=== PATIENT | female | born 1965 | race African-American/Black ===

== ENCOUNTER 2016-12-12 19:51 | Inpatient (IN) | payer BC ==
[~2016-12-12] VITALS: Ht 175.3 cm; Wt 115.4 kg
[2016-12-12 20:48] LABS: Basophils # (auto) 0 uL; Basophils % (auto) 0.5 % (0.0-2.0); Eosinophils # (auto) 0.5 uL; Eosinophils % (auto) 6.8 % (0.0-7.0); Hematocrit 36.3 % (36.0-46.0); Lymphocytes # (auto) 2.1 uL; Lymphocytes % (auto) 27.6 % (10.0-50.0); Mean Corpuscular Hgb Conc. 33.2 g/dL (32.0-36.0); Mean Corpuscular Volume 90.3 fL (80.0-100.0); Monocytes # (auto) 0.5 uL; Monocytes % (auto) 6.5 % (0.0-12.0); Neutrophils # (auto) 4.5 uL; Neutrophils % (auto) 58.6 % (37.0-80.0); Platelet Count (auto) 200 10^3/uL (140-450); Red Cell Distribution Width 13.4 % (11.6-16.0); White Blood Cell 7.7 10^3/uL (4.4-10.8)
[2016-12-12 21:01] LABS: INR 0.99 (0.9-1.15); Partial Thromboplastin Time 27.1 sec (22.64-33.71); Prothrombin Time 10.7 sec (9.37-12.3)
[2016-12-12 21:09] LABS: Albumin 3.2 g/dL (3.4-5.0); BUN/Creatinine Ratio 14.6; Bilirubin, Total 0.4 mg/dL (0.2-1.0); Calcium 8.9 mg/dL (8.5-10.1); Potassium 3.8 mmol/L (3.5-5.1); Total Protein 7.8 g/dL (6.4-8.2)
[2016-12-12] MEDS ORDERED: ENOXAPARIN SOD 100 MG/1 ML SYRINGE SC ONE (23:15)
[2016-12-13] VITALS (8 sets, daily range): BP systolic 93–114; BP diastolic 55–79
[2016-12-13] MEDS ORDERED: TEMAZEPAM 15 MG CAP PO PRN (00:45)
[2016-12-13] MEDS: ONDANSETRON HCL 4 MG/2 ML VIAL IV PRN ×2 (02:21→17:40)
[2016-12-13] MEDS: HYDROcodone-ACET 5/325MG TAB PO PRN ×4 (02:21→21:08)
[2016-12-13 02:29] LABS: Urine Bilirubin Negative (Negative); Urine Blood TRACE /uL (Negative); Urine Color Yellow (Yellow); Urine Glucose Normal (Normal); Urine Hyaline Cast FEW /lpf (0 - 2); Urine Ketone Negative (Negative); Urine Mucus FEW (None Seen); Urine Nitrite Negative (Negative); Urine RBC 3 /hpf (0 - 4); Urine Squamous Epithelial Cell FEW /hpf (<5); Urine Urobilinogen Normal (Negative); Urine pH 5.5 (5.0-8.0)
[2016-12-13] MEDS ORDERED: ENOXAPARIN SOD 100 MG/1 ML SYRINGE SC SCH (10:00)
[2016-12-13] MEDS: FAMOTIDINE 20 MG TAB PO SCH ×2 (10:46→21:09)
[2016-12-13] MEDS: MONTELUKAST SODIUM 10 MG TAB PO SCH (10:46)
[2016-12-13] MEDS ORDERED: APIXABAN 5 MG TAB PO SCH (12:17)
[2016-12-13] MEDS: MORPHINE SULF INJ 2 MG/ML SYRINGE 1ML IV PRN (17:40)
[2016-12-13] MEDS: APIXABAN 5 MG TAB PO SCH (21:09)
[2016-12-14 05:00] VITALS: BP 110/61
[2016-12-14] MEDS: ACETAMINOPHEN 325 MG TAB PO PRN ×2 (05:28→21:47)
[2016-12-14 05:45] LABS: Basophils # (auto) 0 uL; Basophils % (auto) 0.5 % (0.0-2.0); Eosinophils # (auto) 0.2 uL; Eosinophils % (auto) 2.1 % (0.0-7.0); Hemoglobin 11.9 g/dL (12.2-16.2); Lymphocytes # (auto) 1.7 uL; Lymphocytes % (auto) 19.5 % (10.0-50.0); Mean Corpuscular Hemoglobin 29.6 pg (28.0-32.0); Mean Corpuscular Hgb Conc. 32.2 g/dL (32.0-36.0); Mean Corpuscular Volume 91.9 fL (80.0-100.0); Mean Platelet Volume 8.9 fL (7.4-10.4); Monocytes # (auto) 0.6 uL; Monocytes % (auto) 6.4 % (0.0-12.0); Neutrophils # (auto) 6.3 uL; Neutrophils % (auto) 71.5 % (37.0-80.0); Platelet Count (auto) 213 10^3/uL (140-450); Red Cell Distribution Width 13.6 % (11.6-16.0); White Blood Cell 8.8 10^3/uL (4.4-10.8)
[2016-12-14 06:11] LABS: BUN/Creatinine Ratio 11.5; Calcium 8.4 mg/dL (8.5-10.1); Potassium 3.9 mmol/L (3.5-5.1)
[2016-12-14 06:19] LABS: Bilirubin, Total 0.7 mg/dL (0.2-1.0); Total Protein 7.5 g/dL (6.4-8.2)
[2016-12-14] MEDS: APIXABAN 5 MG TAB PO SCH ×2 (08:38→21:47)
[2016-12-14] MEDS: MONTELUKAST SODIUM 10 MG TAB PO SCH (08:38)
[2016-12-14] MEDS: FAMOTIDINE 20 MG TAB PO SCH ×2 (08:38→21:47)
[2016-12-14] MEDS: ONDANSETRON HCL 4 MG/2 ML VIAL IV PRN (08:39)
[2016-12-14 09:00] VITALS: BP 105/55
[2016-12-14] MEDS: SODIUM CHLORIDE 0.9% 1,000 ML IV SCH (12:30)
[2016-12-14] MEDS: MORPHINE SULF INJ 2 MG/ML SYRINGE 1ML IV PRN (12:46)
[2016-12-14 13:00] VITALS: BP 104/60
[2016-12-14] MEDS: DOCUSATE SOD 100 MG CAP PO SCH ×2 (13:17→21:47)
[2016-12-14] MEDS: HYDROcodone-ACET 5/325MG TAB PO PRN (13:40)
[2016-12-14 17:00] VITALS: BP 99/58
[2016-12-14] MEDS: LACTULOSE 20Gm/30ML SOLN PO PRN (17:59)
[2016-12-14 22:00] VITALS: BP 99/57
[2016-12-15 05:45] VITALS: BP 106/60
[2016-12-15 06:15] LABS: Basophils # (auto) 0.1 uL; Basophils % (auto) 0.5 % (0.0-2.0); Eosinophils # (auto) 0.3 uL; Eosinophils % (auto) 2.4 % (0.0-7.0); Hematocrit 37.1 % (36.0-46.0); Hemoglobin 12.1 g/dL (12.2-16.2); Lymphocytes # (auto) 2.4 uL; Lymphocytes % (auto) 22.3 % (10.0-50.0); Mean Corpuscular Hemoglobin 29.9 pg (28.0-32.0); Mean Corpuscular Hgb Conc. 32.6 g/dL (32.0-36.0); Mean Corpuscular Volume 91.7 fL (80.0-100.0); Mean Platelet Volume 9.4 fL (7.4-10.4); Monocytes # (auto) 0.9 uL; Monocytes % (auto) 8.3 % (0.0-12.0); Neutrophils % (auto) 66.5 % (37.0-80.0); Platelet Count (auto) 222 10^3/uL (140-450); Red Cell Distribution Width 13.2 % (11.6-16.0); White Blood Cell 10.6 10^3/uL (4.4-10.8)
[2016-12-15] MEDS: SODIUM CHLORIDE 0.9% 1,000 ML IV SCH ×3 (06:22→21:39)
[2016-12-15] MEDS: HYDROcodone-ACET 5/325MG TAB PO PRN ×2 (06:22→10:57)
[2016-12-15 06:30] LABS: Calcium 8.6 mg/dL (8.5-10.1); Potassium 3.8 mmol/L (3.5-5.1)
[2016-12-15 06:32] LABS: BUN/Creatinine Ratio 9.6
[2016-12-15 06:45] LABS: Bilirubin, Total 0.8 mg/dL (0.2-1.0); Total Protein 7.9 g/dL (6.4-8.2)
[2016-12-15 07:00] VITALS: BP 106/63
[2016-12-15] MEDS: FAMOTIDINE 20 MG TAB PO SCH ×2 (09:29→21:39)
[2016-12-15] MEDS: DOCUSATE SOD 100 MG CAP PO SCH ×2 (09:29→21:39)
[2016-12-15] MEDS: MONTELUKAST SODIUM 10 MG TAB PO SCH (09:29)
[2016-12-15] MEDS: APIXABAN 5 MG TAB PO SCH ×2 (09:29→21:39)
[2016-12-15 11:00] VITALS: BP 95/56
[2016-12-15] MEDS ORDERED: LACTULOSE 20Gm/30ML SOLN PO PRN (11:00)
[2016-12-15] MEDS: PIPERACILLIN-TAZOB 3.375GM 100 ML IV SCH ×3 (11:39→23:30)
[2016-12-15] MEDS ORDERED: BISACODYL 10 MG RECT SUPP PR ONE (13:30)
[2016-12-15 16:49] VITALS: BP 103/61
[2016-12-15 21:30] VITALS: BP 96/53
[2016-12-15] MEDS: LACTULOSE 20Gm/30ML SOLN PO PRN (23:30)
[2016-12-16 05:00] VITALS: BP 108/57
[2016-12-16] MEDS: PIPERACILLIN-TAZOB 3.375GM 100 ML IV SCH ×3 (05:30→18:20)
[2016-12-16 07:05] LABS: Albumin 2.6 g/dL (3.4-5.0); Bilirubin, Total 0.9 mg/dL (0.2-1.0); Total Protein 7.2 g/dL (6.4-8.2)
[2016-12-16 07:14] LABS: Bilirubin, Direct 0.3 mg/dL (0-0.2)
[2016-12-16] MEDS: SODIUM CHLORIDE 0.9% 1,000 ML IV SCH ×2 (08:30→18:50)
[2016-12-16 09:00] VITALS: BP 96/56
[2016-12-16] MEDS: APIXABAN 5 MG TAB PO SCH ×2 (09:02→21:57)
[2016-12-16] MEDS: MONTELUKAST SODIUM 10 MG TAB PO SCH (09:03)
[2016-12-16] MEDS: DOCUSATE SOD 100 MG CAP PO SCH ×2 (09:03→21:56)
[2016-12-16] MEDS: FAMOTIDINE 20 MG TAB PO SCH ×2 (09:03→21:56)
[2016-12-16] MEDS: HYDROcodone-ACET 5/325MG TAB PO PRN ×2 (11:41→21:56)
[2016-12-16 13:00] VITALS: BP 93/46
[2016-12-16 17:00] VITALS: BP 101/57
[2016-12-16 22:05] VITALS: BP 101/59
[2016-12-17] MEDS: PIPERACILLIN-TAZOB 3.375GM 100 ML IV SCH ×5 (00:25→23:53)
[2016-12-17] MEDS: SODIUM CHLORIDE 0.9% 1,000 ML IV SCH ×2 (00:25→16:42)
[2016-12-17 05:03] VITALS: BP 114/67
[2016-12-17 07:10] LABS: Albumin 2.6 g/dL (3.4-5.0); Bilirubin, Direct 0.2 mg/dL (0-0.2); Bilirubin, Total 0.5 mg/dL (0.2-1.0); Total Protein 7.4 g/dL (6.4-8.2)
[2016-12-17 09:00] VITALS: BP 98/62
[2016-12-17] MEDS: MONTELUKAST SODIUM 10 MG TAB PO SCH (09:53)
[2016-12-17] MEDS: APIXABAN 5 MG TAB PO SCH ×2 (09:54→22:00)
[2016-12-17] MEDS: DOCUSATE SOD 100 MG CAP PO SCH ×2 (09:54→21:59)
[2016-12-17] MEDS: FAMOTIDINE 20 MG TAB PO SCH ×2 (09:55→22:00)
[2016-12-17 13:00] VITALS: BP 95/58
[2016-12-17 17:00] VITALS: BP 100/77
[2016-12-17 22:00] VITALS: BP 101/46
[2016-12-17] MEDS: HYDROcodone-ACET 5/325MG TAB PO PRN (22:00)
[2016-12-18] MEDS: SODIUM CHLORIDE 0.9% 1,000 ML IV SCH ×2 (00:30→10:54)
[2016-12-18 05:00] VITALS: BP 133/67
[2016-12-18] MEDS: PIPERACILLIN-TAZOB 3.375GM 100 ML IV SCH ×2 (05:54→12:25)
[2016-12-18 08:00] VITALS: BP 142/77
[2016-12-18 08:03] VITALS: BP 110/53
[2016-12-18] MEDS ORDERED: NITR-39 PO (10:02)
[2016-12-18] MEDS ORDERED: DOCU100C8 PO (10:02)
[2016-12-18] MEDS ORDERED: APIX5TAB PO (10:02)
[2016-12-18] MEDS: MONTELUKAST SODIUM 10 MG TAB PO SCH (10:52)
[2016-12-18] MEDS: DOCUSATE SOD 100 MG CAP PO SCH (10:52)
[2016-12-18] MEDS: FAMOTIDINE 20 MG TAB PO SCH (10:52)
[2016-12-18] MEDS: APIXABAN 5 MG TAB PO SCH (10:54)
[2016-12-18 12:24] VITALS: BP 95/56
[2016-12-20] MEDS ORDERED: APIXABAN 5 MG TAB PO SCH (22:00)
== END 2016-12-18 14:25 | disposition home or self-care (01) | DRG 872 ==
LOC: ER 19:54 → OVERFLOW 19:55 → EAST 12-13 01:29
PROVIDERS: ADMIT Nurse Practitioner; ATTEND Internal Medicine
DX: A41.9 Sepsis, unspecified organism (principal); I82.432 Acute embolism and thrombosis of left popliteal vein; N39.0 Urinary tract infection, site not specified; I82.449 Acute embolism and thrombosis of unspecified tibial vein; J45.909 Unspecified asthma, uncomplicated; E66.9 Obesity, unspecified; Z16.12 Extended spectrum beta lactamase (ESBL) resistance; B96.4 Proteus (mirabilis) (morganii) as the cause of diseases classified elsewhere; R79.89 Other specified abnormal findings of blood chemistry; K59.00 Constipation, unspecified; Z80.1 Family history of malignant neoplasm of trachea, bronchus and lung; Z83.511 Family history of glaucoma; Z91.041 Radiographic dye allergy status; Z88.2 Allergy status to sulfonamides; Z87.442 Personal history of urinary calculi; Z68.37 Body mass index [BMI] 37.0-37.9, adult; Z90.49 Acquired absence of other specified parts of digestive tract; Z90.710 Acquired absence of both cervix and uterus; Z82.49 Family history of ischemic heart disease and other diseases of the circulatory system; Z80.0 Family history of malignant neoplasm of digestive organs
CPT/HCPCS: 36415; 71020; 74176; 76705; 80053; 80076; 81001; 83605; 83735; 84702; 85025; 85610; 85730; 87040; 87086; 87088; 87186; 93005; 93971; 96372; 97001; 97116; 97530; J2405; J2543

== ENCOUNTER 2022-03-20 07:40 | Emergency (ER) | payer MEDICAID ==
[~2022-03-20] VITALS: Ht 175.3 cm; Wt 118.0 kg
[~2022-03-20 07:40] MED LIST: APIX5TAB PO; DOCU100C10 PO; MAGN400T40 PO
[2022-03-20 08:25] LABS: Basophils # (auto) 0 10 ^3/uL (0-0.2); Basophils % (auto) 0.6 % (0.0-2.0); Eosinophils # (auto) 0.2 10 ^3/uL (0-0.8); Eosinophils % (auto) 3.4 % (0.0-7.0); Hematocrit 42.2 % (36.0-46.0); Hemoglobin 13.7 g/dL (12.2-16.2); Lymphocytes # (auto) 2.2 10 ^3/uL (0.4-5.4); Lymphocytes % (auto) 43.4 % (10.0-50.0); Mean Corpuscular Hemoglobin 29.9 pg (28.0-32.0); Mean Corpuscular Hgb Conc. 32.4 g/dL (32.0-36.0); Mean Corpuscular Volume 92.3 fL (80.0-100.0); Monocytes # (auto) 0.4 10 ^3/uL (0-1.3); Monocytes % (auto) 7.5 % (0.0-12.0); Neutrophils # (auto) 2.2 10 ^3/uL (1.6-8.6); Neutrophils % (auto) 45.1 % (37.0-80.0); Nucleated Red Blood Cells % 0.3 %; Red Blood Cells 4.57 10^6/uL (4.0-5.20); Red Cell Distribution Width 13.9 % (11.8-14.3)
[2022-03-20 08:44] LABS: Albumin 3.3 g/dL (3.4-5.0); Calcium 8.9 mg/dL (8.5-10.1)
[2022-03-20 08:49] LABS: BUN/Creatinine Ratio 15.5; Bilirubin, Total 0.4 mg/dL (0.2-1.0); Total Protein 7.6 g/dL (6.4-8.2)
[2022-03-20 09:43] LABS: Urine Bacteria FEW /hpf (None Seen); Urine Blood Negative /uL (Negative); Urine Hyaline Cast FEW /lpf (0 - 2); Urine Mucus FEW (None Seen); Urine Specific Gravity 1.031 (1.001-1.035); Urine WBC 23 /hpf (0 - 5)
[2022-03-20] MEDS ORDERED: cefTRIAXone SOD 1,000 MG VL IM ONE (10:00)
[2022-03-20] MEDS ORDERED: cefTRIAXone 1GM/50ML D5W 50 ML IV ONE (10:15)
[2022-03-20 12:11] VITALS: BP 108/57
== END 2022-03-20 12:12 | disposition home or self-care (01) ==
LOC: ER 07:40
DX: S86.912A Strain of unspecified muscle(s) and tendon(s) at lower leg level, left leg, initial encounter (principal); E46 Unspecified protein-calorie malnutrition; Z68.38 Body mass index [BMI] 38.0-38.9, adult; Z90.49 Acquired absence of other specified parts of digestive tract; Z90.710 Acquired absence of both cervix and uterus; Z79.899 Other long term (current) drug therapy; Z88.6 Allergy status to analgesic agent; Z88.2 Allergy status to sulfonamides; Z88.8 Allergy status to other drugs, medicaments and biological substances; Z91.040 Latex allergy status; X58.XXXA Exposure to other specified factors, initial encounter; Y93.89 Activity, other specified; Y92.89 Other specified places as the place of occurrence of the external cause; Y99.8 Other external cause status
CPT/HCPCS: 36415; 71045; 80053; 81001; 83880; 84484; 85025; 93970; 96365; 99285; J0696

== ENCOUNTER 2022-04-01 15:54 | Emergency (ER) | payer MEDICAID ==
[~2022-04-01] VITALS: Ht 175.3 cm; Wt 113.6 kg
[2022-04-01] MEDS ORDERED: ACETAMINOPHEN 500 MG TAB PO ONE (17:30)
[2022-04-01] MEDS ORDERED: SODIUM CHLORIDE 0.9% 500 ML IV ONE (20:45)
[2022-04-01] MEDS ORDERED: HYDROmorphone HCL 2 MG/ML VL/or syr IV ONE ×2 (21:00→23:45)
[2022-04-01 22:49] LABS: Basophils # (auto) 0 10 ^3/uL (0-0.2); Basophils % (auto) 0.3 % (0.0-2.0); Eosinophils # (auto) 0.1 10 ^3/uL (0-0.8); Eosinophils % (auto) 2.2 % (0.0-7.0); Hematocrit 39.3 % (36.0-46.0); Hemoglobin 12.6 g/dL (12.2-16.2); Lymphocytes # (auto) 1.4 10 ^3/uL (0.4-5.4); Lymphocytes % (auto) 24.5 % (10.0-50.0); Mean Corpuscular Hemoglobin 29.8 pg (28.0-32.0); Mean Corpuscular Hgb Conc. 32.2 g/dL (32.0-36.0); Mean Corpuscular Volume 92.4 fL (80.0-100.0); Monocytes # (auto) 0.5 10 ^3/uL (0-1.3); Monocytes % (auto) 8.4 % (0.0-12.0); Neutrophils # (auto) 3.8 10 ^3/uL (1.6-8.6); Neutrophils % (auto) 64.6 % (37.0-80.0); Red Blood Cells 4.25 10^6/uL (4.0-5.20); Red Cell Distribution Width 13.3 % (11.8-14.3); White Blood Cell 5.9 10^3/uL (4.4-10.8)
[2022-04-01 23:07] LABS: Albumin 3.2 g/dL (3.4-5.0); BUN/Creatinine Ratio 11.1; Calcium 8.6 mg/dL (8.5-10.1); Potassium 3.7 mmol/L (3.5-5.1)
[2022-04-01 23:09] LABS: Bilirubin, Total 0.4 mg/dL (0.2-1.0); Total Protein 7.4 g/dL (6.4-8.2)
[2022-04-01] MEDS ORDERED: cefTRIAXone 1GM/50ML D5W 50 ML IV ONE (23:15)
[2022-04-02 00:43] VITALS: BP 100/57
[2022-04-02 02:52] LABS: Urine Bacteria FEW /hpf (None Seen); Urine Blood TRACE /uL (Negative); Urine Mucus FEW (None Seen); Urine Specific Gravity 1.024 (1.001-1.035); Urine WBC 1 /hpf (0 - 5)
[2022-04-02] MEDS ORDERED: LEVO500T31 PO (04:25)
[2022-04-02] MEDS ORDERED: PERCOT PO (04:25)
[2022-04-02] MEDS ORDERED: ONDA-144 PO ×2 (04:25→04:28)
== END 2022-04-02 04:51 | disposition home or self-care (01) ==
LOC: ER 15:54
DX: N39.0 Urinary tract infection, site not specified (principal); R50.9 Fever, unspecified; Z90.49 Acquired absence of other specified parts of digestive tract; Z90.710 Acquired absence of both cervix and uterus; Z79.899 Other long term (current) drug therapy; Z88.2 Allergy status to sulfonamides; Z88.8 Allergy status to other drugs, medicaments and biological substances; Z88.6 Allergy status to analgesic agent; Z91.040 Latex allergy status; Z20.822 Contact with and (suspected) exposure to COVID-19
CPT/HCPCS: 36415; 71045; 74176; 80053; 81001; 83605; 84484; 85025; 87426; 93005; 96361; 96365; 96375; 96376; 99285; J0696; J1170; J7030

== ENCOUNTER 2022-11-12 09:29 | Emergency (ER) | payer MEDICAID ==
[~2022-11-12] VITALS: Ht 175.3 cm; Wt 120.2 kg
[~2022-11-12 09:29] MED LIST changes: +LEVO500T31 PO; +ONDA-144 PO
[2022-11-12] MEDS ORDERED: LEVO500T31 PO (10:46)
[2022-11-12] MEDS ORDERED: PROM1SOL4 PO (10:46)
[2022-11-12 10:49] VITALS: BP 127/74
== END 2022-11-12 10:56 | disposition home or self-care (01) ==
LOC: ER 09:29
DX: J20.9 Acute bronchitis, unspecified (principal)
CPT/HCPCS: 71046

== ENCOUNTER 2023-01-09 06:12 | Emergency (ER) | payer MEDICAID ==
[~2023-01-09] VITALS: Ht 175.3 cm; Wt 120.6 kg
[~2023-01-09 06:12] MED LIST changes: +DOCU-265 PO; -DOCU100C10 PO; +PROM1SOL4 PO
[2023-01-09 07:15] LABS: Urine Bacteria FEW /hpf (None Seen); Urine Blood TRACE /uL (Negative); Urine Specific Gravity 1.022 (1.001-1.035); Urine WBC 2 /hpf (0 - 5)
[2023-01-09 07:33] LABS: Basophils # (auto) 0 10 ^3/uL (0-0.2); Basophils % (auto) 0.5 % (0.0-2.0); Eosinophils # (auto) 0.2 10 ^3/uL (0-0.8); Eosinophils % (auto) 3.2 % (0.0-7.0); Hematocrit 40.5 % (36.0-46.0); Hemoglobin 13.8 g/dL (12.2-16.2); Lymphocytes # (auto) 2.1 10 ^3/uL (0.4-5.4); Lymphocytes % (auto) 43.1 % (10.0-50.0); Mean Corpuscular Hemoglobin 31.4 pg (28.0-32.0); Mean Corpuscular Hgb Conc. 34.1 g/dL (32.0-36.0); Mean Corpuscular Volume 92.1 fL (80.0-100.0); Monocytes # (auto) 0.3 10 ^3/uL (0-1.3); Monocytes % (auto) 6.2 % (0.0-12.0); Neutrophils # (auto) 2.3 10 ^3/uL (1.6-8.6); Nucleated Red Blood Cells % 0.1 %; Red Cell Distribution Width 13.8 % (11.8-14.3)
[2023-01-09 08:04] LABS: Albumin 3.5 g/dL (3.4-5.0); Calcium 8.7 mg/dL (8.5-10.1)
[2023-01-09 08:08] LABS: BUN/Creatinine Ratio 12.7 (10.0-20.0); Bilirubin, Total 0.4 mg/dL (0.2-1.0)
[2023-01-09] MEDS ORDERED: LIDOCAINE VISCOUS 2% 15ML UD PO ONE (08:30)
[2023-01-09] MEDS ORDERED: MAALOX PLUS or MAALOX 30 ML PO ONE (08:30)
[2023-01-09] MEDS ORDERED: FAMOTIDINE 20 MG TAB PO ONE (08:30)
[2023-01-09] MEDS ORDERED: ONDANSETRON ODT 4 MG TAB PO ONE (08:30)
[2023-01-09] MEDS ORDERED: KETOROLAC TROMETH 30 MG/ML 1ML VIAL IM ONE (08:45)
[2023-01-09] MEDS ORDERED: DexAMETHasone SOD PHOS 10MG/1ML VIAL INJ IM ONE (08:45)
[2023-01-09] MEDS ORDERED: HYDROcodone-ACET 5/325MG TAB PO ONE (09:30)
[2023-01-09] MEDS ORDERED: GABAPENTIN 100 MG CAP PO ONE (09:30)
[2023-01-09 10:49] VITALS: BP 144/56
== END 2023-01-09 10:49 | disposition home or self-care (01) ==
LOC: ER 06:12
DX: M54.50 Low back pain, unspecified (principal); G89.29 Other chronic pain; Z90.49 Acquired absence of other specified parts of digestive tract; Z90.710 Acquired absence of both cervix and uterus; Z87.442 Personal history of urinary calculi; Z88.2 Allergy status to sulfonamides; Z88.6 Allergy status to analgesic agent
CPT/HCPCS: 36415; 71045; 72100; 80053; 81001; 83690; 84484; 85025; 96372; 99284; J1100; J1885

== ENCOUNTER 2023-09-09 19:05 | Emergency (ER) | payer MEDICAID ==
[~2023-09-09] VITALS: Ht 175.3 cm; Wt 118.5 kg
[2023-09-09] MEDS ORDERED: HYDROcodone-ACET 10/325MG TAB PO ONE (20:30)
[2023-09-09] MEDS ORDERED: RIVAROXABAN 15 MG TAB PO ONE (21:57)
[2023-09-09 22:28] LABS: Urine Bacteria FEW /hpf (None Seen); Urine Blood Negative /uL (Negative); Urine Clarity Clear (Clear); Urine Color Yellow (Yellow); Urine Mucus FEW (None Seen); Urine Protein, UAD Negative (Negative); Urine Specific Gravity 1.022 (1.001-1.035); Urine Urobilinogen Normal (Negative); Urine WBC <1 /hpf (0 - 5); Urine pH 5.5 (5.0-8.0)
[2023-09-09] MEDS ORDERED: ONDANSETRON ODT 4 MG TAB PO ONE (22:30)
[2023-09-09] MEDS ORDERED: RIV15T PO (23:19)
[2023-09-09] MEDS ORDERED: HYDR-4902 PO (23:19)
[2023-09-09 23:51] VITALS: BP 143/94; PULSE 63; RESP 18; TEMP 97.9; O2SAT 98
== END 2023-09-09 23:20 | disposition home or self-care (01) ==
LOC: ER 19:20
DX: I82.402 Acute embolism and thrombosis of unspecified deep veins of left lower extremity (principal); Z88.2 Allergy status to sulfonamides; Z91.041 Radiographic dye allergy status; Z91.040 Latex allergy status; Z90.49 Acquired absence of other specified parts of digestive tract; Z90.710 Acquired absence of both cervix and uterus; Z87.442 Personal history of urinary calculi
CPT/HCPCS: 81001; 93971; 99284; Q0162